=== PATIENT | male | born 1935 | race Caucasian/White ===

== ENCOUNTER 2019-10-28 15:03 | Outpatient (CLI) | payer MEDICARE, BC ==
--- NOTE | 2019-10-28 15:48 | CT ---
Exam: Abdomen CT without contrast Pelvic CT without contrast HISTORY: Left nephrolithiasis COMPARISON: None FINDINGS: Abdomen CT: Lung bases:Chronic changes in the left and right lung base similar to CT angiogram chest 09/15/2019 Heart size: Normal heart size. No significant pericardial fluid. Incompletely evaluated watchman Aorta: Atherosclerosis. Solid organs: Limited evaluation by the lack of IV contrast. Grossly no solid organ abnormality. Lymph nodes: No gastrohepatic, retrocrural or periportal lymphadenopathy Gallbladder: No CT evidence of cholelithiasis or cholecystitis Mesentery: No mass, lymphadenopathy, free air or free fluid Kidneys: Bilateral punctate nonobstructing intrarenal calculi measuring 1 to 2 mm. Bilaterally no hyd ronephrosis or perinephric fat stranding. Bilateral ureters have a normal caliber. No hydroureter, periureteral fat stranding or ureterolithiasis. Alimentary canal: Normal gastric mucosa. Normal caliber small bowel loops. Normal ileocecal junction. Appendix is not appreciated. Nevertheless, no inflammatory changes at the cecal apex. Contrast and fecal material in a nondistended, nondilated colon. Occasional diverticulum. No definite CT PELVIS: No mass, adenopathy, free air or free fluid. Mild enlarged prostate gland with mass effect upon the floor the urinary bladder. Urinary bladder: Small calculus in the posterior right aspect of the urinary bladder measuring 0.3 cm . Osseous structures: No lytic or blastic lesions. 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 Vacuum disc phenomenon, osteophyte formation and endplate sclerosis of the L5-S1 disc space. Remote small Schmorl's node along the superior left endplate of L4 . Severe degenerative change at L1-2 with loss of disc space height and osteophyte formation along the left aspect of the disc space. Sclerotic focus involving the left S2 vertebral body likely repres enting a bone. Mild leftward curvature of the lumbar spine. IMPRESSION: 1. Bilateral nonobstructing intrarenal calculi 2. Small bladder calculus. 3. Degenerative changes of the lumbar spine as detailed above.
== END 2019-10-28 15:04 | disposition home or self-care (01) ==
LOC: BICCT 15:03
PROVIDERS: ATTEND Neurological Surgery
DX: N20.0 Calculus of kidney (principal); N21.0 Calculus in bladder; M47.816 Spondylosis without myelopathy or radiculopathy, lumbar region
CPT/HCPCS: 74176